=== PATIENT | female | born 1960 | race Caucasian/White ===

== ENCOUNTER → 2017-12-13 | Outpatient (CLI) | payer OTHER ==
[~2017-12-13] MED LIST: AMARYL2 MG PO; ASPIR 8181 MG PO; CPAP MISCELL; ESCITALOPRAM OX20 MG PO; FARXIGA5 MG PO; FLEXERIL PO; GABAPENTIN 100100 MG PO; HYDROCHLOROTHIA25 M2 PO; HYDROCODON-ACE1 EAC5 PO; LANTUS100 UNIT/M SUBQ; METFORMIN HCL500 MG PO; MOBIC15 MG PO; PRINIVIL10 MG PO; SINGULAIR 10 MG10 M1 PO
--- NOTE | 2018-01-04 16:28 | PAINCON ---
[address] [address] PAIN MANAGEMENT CONSULTATION Name: DANIELLE RUIZ Room: [facility] Anne#: [id number] Admission: 12/13/17 Attend Phys: Lala Aguilar MD Discharge: Date of : 58 Report #: [id number] THIS REPORT FOR: //name// CC: Lala Chen DATE OF SERVICE: 12/13/2017 CHIEF COMPLAINT: Chronic pain, ywpo-bw-smax pain in the knee. HISTORY OF PRESENT ILLNESS: The patient is a 57-year-old female who has been referred to the pain clinic. The patient states that she has had lpbm-au-rytz pain in her knees. She also has pain in her hips. Pain is quite problematic with ambulation. She has been treated with hydrocodone. She found that this medication was helpful. Feels that Meloxicam is helpful as well. She has considered surgery. Because of her weight and useful age, her orthopedic surgeon has asked that she consider delaying surgery as long as possible. The patient has come to the pain clinic with a hope that she can receive medications to help control her pain while she is waiting for an opportunity to undergo surgery. ALLERGIES: No known drug allergies. MEDICATIONS: Aspirin 81 mg daily, Flexeril 10 mg 1 p.o. t.i.d. Farxiga 5 mg, escitalopram 20 mg, Neurontin 100 mg t.i.d., Amaryl 2 mg, hydrochlorothiazide 25 mg, hydrocodone 10/325 one p.o. b.i.d., insulin 100 units, 40 units subcutaneously at bedtime, lisinopril 10 mg, Mobic 15 mg, Glucophage 1000 mg daily, Singulair 10 mg. PAST MEDICAL HISTORY: Diabetes, anemia, hypertension, emotional problems, joint disease. PAST SURGICAL HISTORY: , 05/16/1985, hysterectomy 08/2002, 06/14/1988, carpal tunnel surgery, bilateral. SOCIAL HISTORY: She is disabled and has been for the last 7 years. REVIEW OF SYSTEMS: Generally good health, wears glasses, shortness of breath with walking, swelling of the ankles, joint pains, joint stiffness, weakness, muscle joints, back pain, difficulty walking, depression, and insomnia. LABORATORY DATA: No new laboratory values are available at the time of our interview. PAIN CLINIC ASSESSMENT/PQRS: 1. History of osteoarthritis. The patient [place] [address] PAIN MANAGEMENT CONSULTATION Name: JOSEPHDANIELLE Room: [facility]#: [id number] Admission: 12/13/17 Attend Phys: Lala Aguilar MD Discharge: Date of : 58 Report #: [id number] knees. The patient has not been treated for rheumatoid arthritis. 2. Height 5 feet 2 inches, weight 293 pounds, BMI is 53.7. 3. Vital signs: Blood pressure 156/77, heart rate is 92, respiratory rate 18, room air saturation 93%, temperature 97.8. 4. Pain intensity 7/10. 5. Fall risk. The patient has not fallen in the last 3 months. 6. Blood thinner. The patient is not on a blood thinning medication. 7. Hypertension. The patient is being treated for hypertension. 8. Opioids greater than 6 weeks. The patient is being treated with opioids and will receive medications from one source in the pain clinic. 9. Risk assessment tool. 10. Functional assessment tool . 11. Recreational drug use: The patient denies. 12. Tobacco: The patient denies use of tobacco. 13. Alcohol: The patient denies use of alcoholic beverages. PHYSICAL EXAMINATION: GENERAL: The patient is a well-developed, well-nourished, obese white female, appears her stated age. She is alert and oriented x 3. Affect is appropriate. Speech is fluent. HEENT: Normocephalic, atraumatic. Extraocular eye muscles intact. Sclerae nonicteric. Mucous membranes are moist. The patient's is with her. HEART: Regular rate. S1, S2. LUNGS: Clear to auscultation without rhonchi or rales. ABDOMEN: Protuberant. Bowel sounds are positive. Upper extremity muscle strength is judged to be 5/5 for the major muscle groups in the upper extremity. Deep tendon reflexes are trace at the biceps bilaterally. The patient is without significant scoliosis, kyphosis or lordosis. Forward bending to about 70 degrees was possible. Left and right lateral rotation, left and right lateral bending were not very problematic. The patient complains of some pain and discomfort in her knees bilaterally. Able to rise upon her toes, able to rise up on her heels. Anterior and posterior spring test negative. Dmitri sign is negative. Deep tendon reflexes are trace at the knees bilaterally. The patient has a cane that she uses to ambulate with. IMPRESSION: 1. Osteoarthritis of knees, left and right qikm-xg-cxxs. 2. Diabetes mellitus type 2. 3. Hypertension. 4. Hypercholesterolemia. 5. Asthma. 6. Depression. 7. Sleep apnea. 8. Morbid obesity. RECOMMENDATIONS: We discussed the use of opioid medications. I explained to [facility] [address] [place] [address] PAIN MANAGEMENT CONSULTATION Name: DANIELLE RUIZ Room: [facility]#: [id number] Admission: 12/13/17 Attend Phys: Lala Aguilar MD Discharge: Date of : 58 Report #: [id number] the patient the possible complications of opioid medications which could include problems with addiction. The patient also has been educated in regards to the possibility of lessening of the effectiveness of opioid medication secondary to intolerance. She feels that the medications of 10 mg 1 p.o. b.i.d. has been helpful. She is in a position where her surgeon feels that she is too young to undergo surgical repair. She will need to lose weight prior to the surgery. We explained to the patient that options to lose weight should be sought. Also, possible use of water aerobics. The patient and her are open to this. A script for medications have been written. The patient was given a script for hydrocodone 10/325 one p.o. b.i.d. The patient has signed a contract with the pain clinic that she will get her medication from one source. We would like to thank you for letting us participate in her care. We hope she continues to improve. <ELECTRONICALLY SIGNED> By: Lala Aguilar MD 01/04/18 [id number]. Wang Aguilar MD /nt
== END ==
LOC: M.PC 11-17 04:54
DX: G89.29 Other chronic pain (principal); M17.0 Bilateral primary osteoarthritis of knee; I10 Essential (primary) hypertension; E78.00 Pure hypercholesterolemia, unspecified; F32.9 Major depressive disorder, single episode, unspecified; G47.33 Obstructive sleep apnea (adult) (pediatric); E66.01 Morbid (severe) obesity due to excess calories; J45.909 Unspecified asthma, uncomplicated; E11.9 Type 2 diabetes mellitus without complications

== ENCOUNTER → 2018-01-17 | Outpatient (CLI) | payer OTHER ==
--- NOTE | ~2018-01-17 | PAINCON ---
[address] [address] PAIN MANAGEMENT CONSULTATION Name: DANIELLE RUIZ Room: [facility] Anne#: [id number] Admission: 01/17/18 Attend Phys: Lala Aguilar MD Discharge: Date of : 58 Report #: [id number] THIS REPORT FOR: //name// CC: Lala Chen DATE OF SERVICE: 01/17/2018 FOLLOWUP COMPLAINT: Continued bone pain with ctuu-bm-snsm pain in my knee. FOLLOWUP HISTORY: The patient is a 57-year-old female who has been followed in the Pain Clinic because of chronic pain in her knees. She has wygo-lb-jebx pain. She is not ready to undergo knee replacements at this juncture. She does walk and ambulate with the use of a cane. Feels that Meloxicam is helpful. Finds that hydrocodone is beneficial. She is considering surgery. Her physician has requested that she postpone surgery as long as possible. She is somewhat obese. ALLERGIES: No known drug allergies. CURRENT MEDICATIONS: Aspirin 81 mg, Flexeril 10 mg 1 p.o. t.i.d., Farxiga 5 mg, escitalopram 20 mg, Neurontin 100 mg t.i.d., Amaryl 2 mg, hydrochlorothiazide 25 mg, hydrocodone 10/325 one p.o. b.i.d., insulin 100 units, 40 units subcutaneous at bedtime, lisinopril 100 mg, Mobic 15 mg, Glucophage 1000 mg daily, Singulair 100 mg. PAIN CLINIC ASSESSMENT/PQRS: 1. History of osteoarthritis. The patient has osteoarthritic changes in both the knees. The patient states that she has been told that she has osteoarthritic changes in all of her joints. 2. The patient is not being treated for rheumatoid arthritis. 3. Height 5 feet 2 inches, weight 291 pounds, BMI is 54. 4. Vital signs: Blood pressure 148/70, heart rate 73, respiratory rate 16, room air saturation 96%, temperature 98.3. 5. Pain intensity, 05/31. 6. Fall history: The patient has not fallen in the last 3 months. 7. Blood thinner. The patient is not on a blood thinning medication. 8. Hypertension. The patient is being treated for hypertension. 9. Opioid medications greater than 6 weeks. The patient receives her medications from one source, the Pain Clinic. 10. Risk assessment tool, low for opioid use. 11. Functional assessment tool . 12. Drug use: The patient denies use of recreational drugs. 13. Tobacco: The patient denies use of tobacco. 14. Alcohol: The patient [place] [address] PAIN MANAGEMENT CONSULTATION Name: DANIELLE RUIZ Room: [facility]#: [id number] Admission: 01/17/18 Attend Phys: Lala Aguilar MD Discharge: Date of : 58 Report #: [id number] PHYSICAL EXAMINATION: GENERAL: The patient is a well-developed, well-nourished, obese white female, appears her stated age. She is alert and oriented x 3. Her affect is appropriate. Speech is fluent. HEENT: Normocephalic, atraumatic. Extraocular eye muscles intact. Sclerae nonicteric. Mucous membranes are moist. HEART: Regular rate. S1, S2. LUNGS: Clear to auscultation without rhonchi or rales. ABDOMEN: Protuberant. Bowel sounds positive. MUSCULOSKELETAL: Upper extremity muscle strength is judged to be 5/5 for the major muscle groups. Deep tendon reflexes, trace bilaterally. The patient is without significant scoliosis, kyphosis or lordosis. The patient has pain and discomfort in her knees bilaterally. Does walk with a cane. Has a left and right lateral rocking motion with a complaint of pain and discomfort in her knees bilaterally. ASSESSMENT: 1. Osteoarthritis of her knees, left and right with nyjp-yi-sfvt pain -- the patient states she has osteoarthritic changes in numerous bone areas. 2. Diabetes type 2. 3. Hypertension. 4. Hypercholesterolemia. 5. Asthma. 6. Depression. 7. Sleep apnea. 8. Morbid obesity. RECOMMENDATIONS: We discussed treatment options with the patient. At this juncture, we will continue with her opioid medications. Feels the medications are helpful. Does not have any problems with the medication with her breathing. Finds that one to two tablets daily is efficacious. She is aware of the possible complication of opioid medications. They can cause some problems with sleep apnea. The patient states that she is not having any problems with this medication and sleeping at this juncture. She feels that the medications, able her to enable her to engage in activities of daily living, she would not be able to without them. Rates her pain as a 4/10. She would like to continue with her medications. She will call us if she has any concerns. A script for her medications of hydrocodone one p.o. b.i.d. had been written. We would like to thank you for letting us participate in her care. We hope she continues to improve. By: [id number]. Wang Aguilar MD /nt
== END ==
LOC: M.PC 04:53
DX: M17.0 Bilateral primary osteoarthritis of knee (principal); E11.9 Type 2 diabetes mellitus without complications; I10 Essential (primary) hypertension; E78.00 Pure hypercholesterolemia, unspecified; J45.909 Unspecified asthma, uncomplicated; F32.9 Major depressive disorder, single episode, unspecified; G47.30 Sleep apnea, unspecified; E66.01 Morbid (severe) obesity due to excess calories

== ENCOUNTER → 2018-02-23 | Outpatient (CLI) | payer OTHER ==
--- NOTE | ~2018-02-23 | PAINCON ---
[address] [address] PAIN MANAGEMENT CONSULTATION Name: JOSEPHDANIELLE Cheng Room: [facility] Anne#: [id number] Admission: 02/23/18 Attend Phys: Lala Aguilar MD Discharge: Date of : 58 Report #: [id number] THIS REPORT FOR: //name// CC: Lala Chen MD DATE OF SERVICE: 02/23/2018 CHIEF COMPLAINT: Here for medications. "I have got wfen-ar-ziro knee pain." HISTORY: The patient is a 57-year-old female who has been seen in the Pain Clinic in the past because of chronic pain involving her knees. States that she does have vqub-vd-pkyc knee pain. She has found hydrocodone 10 mg b.i.d. to be beneficial. She has returned today for renewal of her medications. Overall, she feels that knee replacements are likely in the future. At this juncture, she is not ready to undergo replacement. Walks with use of her cane. Feels that the nonsteroidal anti-inflammatory medication, Meloxicam is helpful. She is somewhat obese and finds that the added weight again adds to the pain and discomfort she is experiencing on her knees. ALLERGIES: No known drug allergies. CURRENT MEDICATIONS: Aspirin 81 mg, Flexeril 10 mg 1 p.o. t.i.d., Farxiga 5 mg, escitalopram 20 mg, Neurontin 100 mg t.i.d., Amaryl 2 mg, hydrochlorothiazide 25 mg, hydrocodone 10/325 one p.o. b.i.d., insulin 100 units 40 units subcutaneous at bedtime, lisinopril 100 mg, Mobic 15 mg, Glucophage 1000 mg daily, and Singulair 100 mg. PAIN CLINIC ASSESSMENT/PQRS: 1. History of osteoarthritis. The patient has arthritic changes with ramo-ap-eumj involvement of both of her knees. She has been told to have surgery. At this juncture, she would like to postpone as long as possible. The patient is not being treated for rheumatoid arthritis. 2. Height 5 feet 2 inches, weight 286 pounds, BMI is 50. 3. Vital signs: Blood pressure 155/75, heart rate is 84, respiratory rate 18, room air saturation 94%, temperature 98.1. 4. Pain intensity 4/10. 5. Fall history: The patient has not fallen in the last 3 months. She did fall with moving from a rolling chair to another chair. She was not injured and did not seek medical attention. 6. Blood thinner. The patient is not on a blood thinning medication. 7. Hypertension. The patient is being treated for hypertension. 8. Opioids greater than 6 weeks. The patient receives her medication from one source, the Pain Clinic. 9. Risk assessment tool, [place] [address] PAIN MANAGEMENT CONSULTATION Name: DANIELLE RUIZ Room: [facility] Anne#: [id number] Admission: 02/23/18 Attend Phys: Lala Aguilar MD Discharge: Date of : 58 Report #: [id number] 10. Functional assessment tool . 11. Drug use. The patient denies use of recreational drugs. 12. Tobacco: The patient denies use of tobacco. 13. Alcohol: The patient denies use of alcoholic beverages. PHYSICAL EXAMINATION: GENERAL: The patient is a well-developed, well-nourished white female. Appears her stated age. She is obese. Her affect is appropriate. Speech is fluent. HEENT: Normocephalic and atraumatic. Extraocular muscles intact. Sclerae nonicteric. Mucous membranes are moist. NECK: Without adenopathy or JVD. HEART: Regular rate. S1, S2. LUNGS: Clear to auscultation without rhonchi or rales. ABDOMEN: Protuberant. Bowel sounds positive, somewhat of a pannus noted. MUSCULOSKELETAL: Upper extremity muscle straight judged to be 5/5 for the major muscle groups in the upper extremity. Deep tendon reflexes trace bilaterally. The patient without significant scoliosis, kyphosis or lordosis. Does have pain and discomfort in her knees bilaterally. Walks with use of a cane. Has a left or right rocking motion when walking. ASSESSMENT: 1. Osteoarthritis of her knees bilaterally with zmwh-vk-wyay pain. 2. Diabetes type 2. 3. Hypertension. 4. Hypercholesterolemia. 5. Asthma. 6. Depression. 7. Sleep apnea. 8. Morbid obesity. RECOMMENDATIONS: We discussed treatment options with the patient. We will continue with her hydrocodone. The patient feels that this medication is beneficial. She is able to be more active with its use. She has had no complication from the medications. We again discussed the possible complication of opioid use, they could include termite treater helper or short term addiction as well as less effectiveness over a period of time because of the development of tolerance. The patient feels medications are helpful and would like to continue their use. A script for the medication have been written. She will follow up in about a month. We would like to thank you for letting us participate in her care. We hope she continues to improve. By: [id number]. Wang Aguilar MD /stephan
== END ==
LOC: M.PC 10:30
DX: M17.0 Bilateral primary osteoarthritis of knee (principal); E11.9 Type 2 diabetes mellitus without complications; I10 Essential (primary) hypertension; E78.00 Pure hypercholesterolemia, unspecified; J45.909 Unspecified asthma, uncomplicated; F32.9 Major depressive disorder, single episode, unspecified; G47.30 Sleep apnea, unspecified; E66.01 Morbid (severe) obesity due to excess calories; Z79.899 Other long term (current) drug therapy; Z68.43 Body mass index [BMI] 50.0-59.9, adult

== ENCOUNTER → 2018-04-27 | Outpatient (CLI) | payer OTHER ==
--- NOTE | ~2018-04-27 | PAINCON ---
[address] [address] PAIN MANAGEMENT CONSULTATION Name: JOSEPHDANIELLE Room: [facility] Anne#: [id number] Admission: 04/27/18 Attend Phys: Lala Aguilar MD Discharge: Date of : 58 Report #: [id number] THIS REPORT FOR: //name// CC: Lala Chen DATE OF SERVICE: 04/27/2018 CHIEF COMPLAINT: "Here for medication renewal and continued to have pain in both knees." FOLLOWUP HISTORY: The patient is a 57-year-old female who has been seen in the Pain Clinic. She has chronic pain involving her knees. She is experiencing lwze-sl-eadg pain. She has found that hydrocodone, gabapentin and Mobic are helpful. She has returned today for renewal of her hydrocodone medication. She notes that activities, cold weather, walking, standing, sitting, going from a sitting to a standing position, lifting and bending are problematic. She feels that her medication, use of heat and cold as well as rest are beneficial and she would like to continue with her medications. ALLERGIES: No known drug allergies. CURRENT MEDICATIONS: Aspirin 81 mg, Flexeril 10 mg one p.o. t.i.d., Farxiga 5 mg, escitalopram 20 mg, Neurontin 100 mg t.i.d., Amaryl 2 mg, hydrochlorothiazide 25 mg, hydrocodone 10/325s one p.o. b.i.d., insulin 100 units - 40 units subcutaneous at bedtime, lisinopril 100 mg, Mobic 15 mg, Glucophage 1000 mg, Singulair 100 mg. PAIN CLINIC ASSESSMENT/PQRS: 1. Osteoarthritis: The patient has arthritic changes in her knees with yzsj-al-hmel on both knees. The patient was told that she should postpone surgery. 2. Height 5 feet 2 inches, weight 286 pounds, BMI is 50. 3. Vital signs: Blood pressure 154/75, heart rate 84, respiratory rate 18, room air saturation 93%, temperature 98.2. 4. Pain intensity: 09/30. 5. Fall history: The patient has not fallen in the last 3 months. 6. Blood thinner: The patient is not on a blood thinning medication. 7. Hypertension: The patient is being treated for hypertension. 8. Opioids greater than 6 weeks: The patient receives her medication from one source, Pain Clinic. 9. Risk assessment tool: Low for opioid use. 10. Functional assessment tool. 11. Recreational drug use: The patient denies use of recreational drugs. 12. Alcohol: The patient [place] [address] PAIN MANAGEMENT CONSULTATION Name: DANIELLE RUIZ [facility] [id number] Admission: 04/27/18 Attend Phys: Lala Aguilar MD Discharge: Date of : 58 Report #: [id number] PHYSICAL EXAMINATION: GENERAL: The patient is a well-developed, well-nourished white female. She appears her stated age. She is alert and oriented x 3. She is obese. Her affect is appropriate. Speech is fluent. HEENT: Normocephalic, atraumatic. Extraocular eye muscles are intact. Sclerae are nonicteric. Mucous membranes are moist. NECK: Without adenopathy or JVD. LUNGS: Clear to auscultation, without rhonchi or rales. ABDOMEN: Protuberant. Bowel sounds present. The patient has a pannus. MUSCULOSKELETAL: Upper extremity muscle strength judged to be 5/5 for the major muscle groups in the upper extremity. Deep tendon reflexes are trace bilaterally. The patient without significant scoliosis, kyphosis, or lordosis. The patient does walk and ambulate with pain. She has an antalgic gait with a evelyn motion. ASSESSMENT: 1. Osteoarthritis of the knees bilaterally with uquf-zu-fglu pain. 2. Diabetes type 2. 3. Hypertension. 4. Hypercholesterolemia. 5. Asthma. 6. Depression. 7. Sleep apnea. 8. Morbid obesity. RECOMMENDATIONS: We discussed treatment options with the patient. Risks and benefits of opioid medications were again re-affirmed. They include benefits but can become less effective over time secondary to development of tolerance. We have explained the possible complications of dependence, 11991 people last year as a result of use of opioid medications. The patient is aware of the opioid crisis in the news. She feels that things are going reasonably well. She is gleaning greater than 50% improvement in her pain and would like to continue with her current medical regimen. By: [id number]. Wang Aguilar MD /nt
== END ==
LOC: M.PC 03-30 12:10
DX: M17.0 Bilateral primary osteoarthritis of knee (principal); E11.9 Type 2 diabetes mellitus without complications; I10 Essential (primary) hypertension; E78.00 Pure hypercholesterolemia, unspecified; J45.909 Unspecified asthma, uncomplicated; G47.30 Sleep apnea, unspecified; F32.9 Major depressive disorder, single episode, unspecified; E66.01 Morbid (severe) obesity due to excess calories; Z68.43 Body mass index [BMI] 50.0-59.9, adult; Z79.899 Other long term (current) drug therapy

== ENCOUNTER → 2018-05-25 | Outpatient (CLI) | payer OTHER ==
--- NOTE | ~2018-05-25 | PAINCON ---
[address] [address] PAIN MANAGEMENT CONSULTATION Name: JOSEPHDANIELLE Room: [facility] Anne#: [id number] Admission: 05/25/18 Attend Phys: Lala Aguilar MD Discharge: Date of : 58 Report #: [id number] THIS REPORT FOR: //name// CC: Lala Chen DATE OF SERVICE: 05/25/2018 CHIEF COMPLAINT: Chronic pain with ijzv-wi-csoa pain in the knees. HISTORY: The patient is a 57-year-old female who has been seen in the Pain Clinic because of chronic pain involving her knees. At this juncture, she is having jjsk-eu-jfta pain. She is not scheduled for knee replacements. She tries to stay as active as possible. Notes that walking, standing, going from sitting to standing is problematic. She walks with a cane. Does note that this limits her activities. Notes that heat and cold can be helpful. She has been taking her medications of hydrocodone as directed. Feels that the Mobic medication is helpful as well. Gabapentin continues to be used. At this juncture, she has returned today for renewal of her medications. She feels that the weather is improved somewhat, but rates her pain as about 50% improved with her current medication regimen. She continues to try and lose weight. ALLERGIES: No known drug allergies. CURRENT MEDICATIONS: Aspirin 81 mg, Flexeril 10 mg 1 p.o. t.i.d., Farxiga 5 mg, escitalopram 20 mg, Neurontin 100 mg t.i.d., Amaryl 2 mg, hydrochlorothiazide 25 mg, hydrocodone 10/325 one p.o. b.i.d., insulin 100 units, 40 units at bedtime, lisinopril 100 mg, Mobic 15 mg, Glucophage ____ mg, Singulair 100 mg. PAIN CLINIC ASSESSMENT/PQRS: 1. The patient is not being treated for rheumatoid arthritis. She is being treated for osteoarthritis with bzoe-to-nkze pain. She is not undergoing surgery at this juncture. She has been told to postpone it until absolutely necessary. 2. Height 5 feet 2 inches, weight 291 pounds, BMI is 51. 3. Vital Signs: Heart rate is 83, respiratory rate is 18, room air saturation is 94%, blood pressure 144/68, temperature 98.7. 4. Pain intensity 6/10. 5. Fall history, the patient has not fallen in the last 3 months. 6. Blood thinner. The patient is on a blood thinning medication. 7. Hypertension. The patient is being treated for hypertension. 8. Opioids greater than 6 weeks. The patient receives her medication from one source, the pain clinic. 9. Risk assessment tool, low for opioid use. 10. Functional assessment tool. 11. Recreational drug use. The [place] [address] PAIN MANAGEMENT CONSULTATION Name: DANIELLE RUIZ Room: [facility]#: [id number] Admission: 05/25/18 Attend Phys: Lala Aguilar MD Discharge: Date of : 58 Report #: [id number] 12. Alcohol: The patient denies frequent use of alcoholic beverages. PHYSICAL EXAMINATION: GENERAL: The patient is a well-developed, obese white female. Appears stated age. She is alert and oriented x 3. Her affect is appropriate. Speech is fluent. HEENT: Normocephalic, atraumatic. Extraocular eye muscles intact. NECK: Without adenopathy or JVD. HEART: Regular rate. S1, S2. LUNGS: Clear to auscultation without rhonchi. ABDOMEN: Protuberant. Bowel sounds are present. The patient has a pannus. MUSCULOSKELETAL: Upper extremity muscle strength judged to be 5-/5 for the major muscle groups. Lower extremity is judged to be 5- for the lower extremities. Limited secondary to pain because of mfob-dq-nbdx discomfort. Walks with an antalgic gait, uses a cane. Uses a rocking motion in her gait. ASSESSMENT: 1. Osteoarthritis of the knee bilaterally mjrb-jl-dmxd pain. 2. Diabetes type 2. The patient states that her A1c is about 8.1. 3. Hypertension. 4. Hypercholesterolemia. 5. Asthma. 6. Depression. 7. Sleep apnea. 8. Morbid obesity. RECOMMENDATIONS: We discussed treatment options with the patient. Risks and benefits of use of opioid medications were discussed. The patient at this juncture is not a candidate for a knee replacement. She is trying to maintain her pain control as best she can without surgery at this juncture. Feels that the hydrocodone medication is helpful. Continues to take the aspirin medication, Mobic. Uses gabapentin. She will follow up as needed. A script for her medications of hydrocodone 10/325 one p.o. b.i.d. have been written. She will call us when she needs to return. We have discussed the problems with opioid medication, which could be development of tolerance with less effectiveness of the medication as well as development of addiction to opioid medications. She feels that things are going reasonably well. Keeps her medication in a guarded area. She will follow up in the future as needed. We would like to thank you for letting us participate in her care. We hope she continues to improve. By: [id number]. Wang Aguilar MD /nt
== END ==
LOC: M.PC 04:35
DX: M17.0 Bilateral primary osteoarthritis of knee (principal); E11.9 Type 2 diabetes mellitus without complications; I10 Essential (primary) hypertension; E78.00 Pure hypercholesterolemia, unspecified; J45.909 Unspecified asthma, uncomplicated; F32.9 Major depressive disorder, single episode, unspecified; E66.8 Other obesity; G47.39 Other sleep apnea; G89.29 Other chronic pain; Z79.899 Other long term (current) drug therapy

== ENCOUNTER → 2018-06-22 | Outpatient (CLI) | payer OTHER ==
--- NOTE | ~2018-06-22 | PAINCON ---
[address] [address] PAIN MANAGEMENT CONSULTATION Name: JOSEPHDANIELLE Cheng Room: [facility] Dayana#: [id number] Admission: 06/22/18 Attend Phys: Lala Aguilar MD Discharge: Date of : 58 Report #: [id number] THIS REPORT FOR: //name// CC: Lala Chen MD DATE OF SERVICE: 06/22/2018 CHIEF COMPLAINT: Here for medication renewal. FOLLOWUP HISTORY: The patient is a 57-year-old female who has been followed in the Pain Clinic. She states that she has zxzj-lo-iyyy pain involving her knees. She has not had surgery. She rates pain as a 4/10. Denies any changes. Notes that her pain medications continued to be helpful. Notes pain with walking, standing, sitting, climbing stairs, lifting and bending. Cold temperatures can be more problematic. Notes that use of her medications in conjunction with heat and cold can be beneficial. She feels her medications help her and she is about 50% relief from discomfort with their use. She continues to try to lose weight. ALLERGIES: No known drug allergies. CURRENT MEDICATIONS: Aspirin 81 mg, Flexeril 10 mg 1 p.o. t.i.d., Farxiga 5 mg, escitalopram 20 mg, Neurontin 100 mg t.i.d., Amaryl 2 mg, hydrochlorothiazide 25 mg, hydrocodone 10/325 one p.o. b.i.d.; insulin 100 units, 40 units at bedtime; lisinopril 100 mg; Mobic 15 mg; Glucophage 500 mg 1 p.o. b.i.d.; Singulair 100 mg. PAIN CLINIC ASSESSMENT/PQRS: 1. The patient is not being treated for rheumatoid arthritis. She is being treated for osteoarthritis with ixfg-mg-ujfq pain involving her knees. She has continued to postpone surgery until it is absolutely necessary. Height 5 feet 2 inches, weight 299 pounds, BMI is 51.1. 2. Blood pressure 145/76, heart rate 82, respiratory rate 20, room air saturation 95%. Temperature 98.2. 3. Pain intensity 05/31. 4. Fall history: The patient has not fallen in the last 3 months. 5. Blood thinner. The patient is not on a blood thinning medication. 6. Hypertension. The patient is being treated for hypertension. 7. Opioids greater than 6 weeks. The patient receives her medication from one source, the Pain Clinic. 8. Risk assessment tool, low for opioid use. 9. Functional assessment tool. 10. Recreational drug use. The patient denies use of recreational drugs. 11. Alcohol: The patient denies [place] [address] PAIN MANAGEMENT CONSULTATION Name: DANIELLE RUIZ [id number] Admission: 06/22/18 Attend Phys: Lala Aguilar MD Discharge: Date of : 58 Report #: [id number] PHYSICAL EXAMINATION: GENERAL: The patient is a well-developed, well-nourished, obese white female. Appears her stated age. She is alert and oriented x 3. Her affect is appropriate. Speech is fluent. HEENT: Normocephalic, atraumatic. Extraocular eye muscles intact. Sclerae nonicteric. Mucous membranes are moist. NECK: Without adenopathy or JVD. HEART: Regular rate. S1, S2. LUNGS: Clear to auscultation. ABDOMEN: Protuberant. Bowel sounds present. The patient has a pannus. Upper extremity muscle strength is judged to be 5-/5 for the major muscle groups. Lower extremity muscle strength 5-/5 for the lower extremities. The patient has pain and discomfort with tpmb-se-gnwm discomfort in her left and right knee. Walks with an antalgic gait and uses her cane. Has a slight rocking motion in her gait. ASSESSMENT: 1. Osteoarthritis of the knees bilaterally with eqih-or-fqlr pain. 2. Type 2 diabetes. 3. Hypertension. 4. Hypercholesterolemia. 5. Asthma. 6. Depression. 7. Sleep apnea. 8. Morbid obesity. RECOMMENDATIONS: We discussed treatment options with the patient. At this juncture, we will continue with her medications. She is aware that opioid medications can be helpful to some extent, but are not able to totally alleviate her pain. She continues to bide her time. She will consider replacement of her knees in the future. At this juncture, she will continue with her medications of hydrocodone, which she finds helpful. We will continue with gabapentin as well as with Mobic. She does not have any problems with her stomach at this juncture. She will call us if she has any concerns. A script for her medications have been written. We would like to thank you for letting us participate in her care. We hope she continues to improve. By: [id number]. Wang Aguilar MD /nt
== END ==
LOC: M.PC 04:48
DX: M17.0 Bilateral primary osteoarthritis of knee (principal); E11.9 Type 2 diabetes mellitus without complications; I10 Essential (primary) hypertension; E78.00 Pure hypercholesterolemia, unspecified; J45.909 Unspecified asthma, uncomplicated; F32.9 Major depressive disorder, single episode, unspecified; G47.30 Sleep apnea, unspecified; E66.01 Morbid (severe) obesity due to excess calories; Z68.43 Body mass index [BMI] 50.0-59.9, adult; Z79.899 Other long term (current) drug therapy

== ENCOUNTER → 2018-07-25 | Outpatient (CLI) | payer OTHER ==
--- NOTE | ~2018-07-25 | PAINCON ---
[address] [address] PAIN MANAGEMENT CONSULTATION Name: DANIELLE RUIZ Room: [facility] Anne#: [id number] Admission: 07/25/18 Attend Phys: Lala Aguilar MD Discharge: Date of : 58 Report #: [id number] THIS REPORT FOR: //name// CC: Lala Chen DATE OF SERVICE: 07/25/2018 CHIEF COMPLAINT: Here for medication renewal. HISTORY: The patient is a 57-year-old female who has been followed in the pain clinic. She has some pain and discomfort involving her knees. She does have ehqm-ej-ougf involvement. At this juncture, she has continued to take a conservative approach. She continues to have pain, which radiates down into her knees. Both the left knee and the right knee are problematic. Left is more problematic than right. She has been experiencing this pain for a number of years. She has gone to her orthopedic surgeons. At this point, orthopedic surgeons have declined knee replacements until she loses weight. Does have diabetes, which needs to be under control. ALLERGIES: No known drug allergies. CURRENT MEDICATIONS: Aspirin 81 mg, Flexeril 10 mg 1 p.o. t.i.d., Farxiga 5 mg, escitalopram 20 mg, Neurontin 100 mg t.i.d., Amaryl 2 mg, hydrochlorothiazide 25 mg, hydrocodone 10/325 one p.o. b.i.d., insulin 100 units, 40 units at bedtime, lisinopril 100 mg, Mobic 15 mg, Glucophage 500 mg b.i.d., and Singulair 100 mg. PAIN CLINIC ASSESSMENT AND PQRS: 1. The patient is not being treated for rheumatoid arthritis. She is not being treated for osteoarthritis, but does have cpin-ti-jzdx involvement of her knees. 2. Height 5 feet 3 inches, weight 280 pounds, BMI is 51. 3. Vital signs: Blood pressure 138/69, heart rate 71, respiratory rate 18, room air saturation 92%, temperature 98.7. 4. Pain intensity 08/30. 5. Fall history: The patient has not fallen in the last 3 months. 6. Blood thinner. The patient is not on a blood thinning medication. 7. Hypertension. The patient is being treated for hypertension. 8. Opioids greater than 6 weeks. The patient receives her medication from one source, the pain clinic. 9. Risk assessment tool, low for opioid use. 10. Functional assessment tool. 11. Recreational drug use. The patient denies use of recreational drugs. 12. Alcohol: The patient denies frequent use of alcoholic beverages. PHYSICAL EXAMINATION: GENERAL: The patient is well-developed, well-nourished [place] [address] PAIN MANAGEMENT CONSULTATION Name: DANIELLE RUIZ Room: [facility]#: [id number] Admission: 07/25/18 Attend Phys: Lala Aguilar MD Discharge: Date of : 58 Report #: [id number] morbidly obese. She appears her stated age. She is alert and oriented x 3. Her affect is appropriate. Speech is fluent. HEENT: Normocephalic, atraumatic. Extraocular eye muscles intact. Sclerae nonicteric. Mucous membranes moist. NECK: Without adenopathy or JVD. HEART: Regular rate. S1, S2. LUNGS: Clear to auscultation, somewhat decreased given the patient's body habitus. ABDOMEN: Protuberant. Bowel sounds present. The patient has a pannus. MUSCULOSKELETAL: Upper extremity muscle strength is judged to be 5-/5 for the major muscle groups in the lower extremity. The patient complains of pain and discomfort secondary to xzlq-ok-myvj, pain in her knees, left and right. The patient walks with an antalgic gait. She does use a cane. She has a slight walk evelyn motion in her gait. ASSESSMENT: 1. Osteoarthritis of the knees bilaterally with uuer-yp-fliu pain. 2. Type 2 diabetes. 3. Hypertension. 4. Hypercholesterolemia. 5. Asthma. 6. Depression. 7. Sleep apnea. 8. Morbid obesity. 9. Complex pain management using opioid medications. RECOMMENDATIONS: We discussed the use of opioid medication with the patient. We will continue with her medication regimen of hydrocodone 10 mg 1 p.o. b.i.d. The patient will also continue with gabapentin to help control the pain as well as meloxicam. She will monitor her GI tract for the effects of nonsteroidal anti-inflammatory medications such as Mobic. She will also continue with the gabapentin medication. We may consider in the future increasing the gabapentin medication as she is able to tolerate it. Sometimes the pain thresholds are not improved until 1800 mg of this medication has been reached. Some patients were able to tolerate it better than others. We will consider that in the future. The patient will continue with the hydrocodone 10 mg, a script for this has been written. She will call us if she has any concerns. She finds that her pain is about 50% improved with use of this medication. We would like to thank you for letting us participate in her care. We hope she continues. By: [id number]. MD rylie King
== END ==
LOC: M.PC 05:12
DX: Z76.0 Encounter for issue of repeat prescription (principal); M17.0 Bilateral primary osteoarthritis of knee; E11.9 Type 2 diabetes mellitus without complications; I10 Essential (primary) hypertension; E78.00 Pure hypercholesterolemia, unspecified; E66.9 Obesity, unspecified; F32.9 Major depressive disorder, single episode, unspecified; Z79.891 Long term (current) use of opiate analgesic; Z79.82 Long term (current) use of aspirin; Z79.899 Other long term (current) drug therapy

== ENCOUNTER → 2018-08-31 | Outpatient (CLI) | payer OTHER ==
--- NOTE | ~2018-08-31 | PAINCON ---
[address] [address] PAIN MANAGEMENT CONSULTATION Name: JOSEPHDANIELLE Room: [facility] M.Thu.#: [id number] Admission: Attend Phys: Lala Aguilar MD Discharge: Date of : 58 Report #: [id number] THIS REPORT FOR: //name// CC: Lala Chen MD DATE OF SERVICE: 08/31/2018 CHIEF COMPLAINT: Here for medication renewal. The patient is a 58-year-old female who has been followed in the pain clinic. As you recall, she has significant problems with her knees. She described a psku-qj-etqj pain involves her left knee as well as the right. She is not a candidate for surgery at this point. She may require weight loss before they would proceed. She does have diabetes. She has taken her medications as prescribed. She feels that her medications are helpful. She is about 50% improved with her current medical regimen. She is having some increased pain in her back as well as in her hips. She rates her pain as a 7 today. It can rise to the level of a 9 by the end of the day. She has had benefit from her opioid medications and has elected to continue their use. At this juncture, she would like to have her medications renewed. ALLERGIES: No known drug allergies. CURRENT MEDICATIONS: Aspirin 81 mg, Flexeril 10 mg 1 p.o. t.i.d., Farxiga 5 mg, escitalopram 20 mg, Neurontin 100 mg t.i.d., Amaryl 2 mg, hydrochlorothiazide 25 mg, hydrocodone 10/325 one p.o. b.i.d., insulin 100 units, 24 units at bedtime, lisinopril 100 mg, Mobic 15 mg, Glucophage 500 mg b.i.d., and Singulair 100 mg. PAIN CLINIC ASSESSMENT/PQRS: 1. The patient is not being treated for rheumatoid arthritis. She does have a history of osteoarthritis. Has qltu-qr-dpxw pain involving her knees. 2. Height 5 feet 3, weight is 284 pounds, BMI is 50.0. 3. Vital signs: Blood pressure 152/52, heart rate 80, respiratory rate 16, room air saturation 94%, temperature 98.2. 4. Pain intensity 7/10. 5. Fall history: The patient has not fallen in the last 3 months. 6. Blood thinner. The patient is not on a blood thinning medication. 7. Hypertension. The patient is being treated for hypertension. 8. Opioid greater than 6 weeks. The patient receives her medications from one source, the pain clinic. 9. Risk assessment tool, low for opioid use. 10. Functional assessment tool. 11. Recreational drug use. The patient denies use of recreational drugs. 12. Alcohol: The patient denies [place] [address] PAIN MANAGEMENT CONSULTATION Name: DANIELLE RUIZ Room: [facility].#: [id number] Admission: Attend Phys: Lala Aguilar MD Discharge: Date of : 58 Report #: [id number] PHYSICAL EXAMINATION: GENERAL: The patient is a well-developed, well-nourished morbidly obese white female. Appears her stated age. She is alert and oriented x 3. Her affect is appropriate. Speech is fluent. HEENT: Normocephalic, atraumatic. Extraocular eye muscles intact. Sclerae nonicteric. Mucous membranes are moist. NECK: Without adenopathy or JVD. HEART: Regular rate. S1, S2. LUNGS: Clear to auscultation, somewhat difficulty here secondary to the patient's body habitus. ABDOMEN: Protuberant. Bowel sounds present. The patient has a pannus. MUSCULOSKELETAL: Upper extremity muscle strength is judged to be 5-/5 for the major muscle groups in the upper extremity. The patient walks with a cane. Has omoq-az-lcsx pain complaints in her knees. Has a somewhat waddling gait. It appears antalgic. She states that there is some discomfort when she is walking. ASSESSMENT: 1. Osteoarthritis of the knees bilaterally with uiem-le-brtf pain. 2. Type 2 diabetes. 3. Hypertension. 4. Hypercholesterolemia. 5. Asthma. 6. Depression. 7. Sleep apnea. 8. Morbid obesity. 9. Complex pain management using opioid medications. RECOMMENDATIONS: We discussed treatment options with the patient. At this juncture, we will continue with her medications. She feels that the hydrocodone 10 mg 1 p.o. b.i.d. is helpful. The patient does have sleep apnea and states that she is not having any more problems with her medication than without. Feels that the gabapentin medication is helpful. Continues to use it in conjunction with meloxicam. She continues to monitor her GI tract because of the nonsteroidal effects of Mobic. She will continue with her medications of hydrocodone. She is aware that this medication can be problematic in some patients. Some patients can develop tolerance and become note less effectiveness over a period of time. Some patients may also develop problems and developed dependency. She does not feel she has had any problems with dependency. She is using the medication as prescribed. She is able to engage in activities, she would not be able to. She rates her pain as about 50% improvement with the medication. She elects to continue with the medication. A script for her medications of hydrocodone [place] [address] PAIN MANAGEMENT CONSULTATION Name: DANIELLE RUIZ Room: [facility].#: [id number] Admission: Attend Phys: Lala Aguilar MD Discharge: Date of : 58 Report #: [id number] written. We will continue with a complex medical management using opioids to help the patient continued to be as active as possible. By: [id number]. Wang Aguilar MD /[facility]
== END ==
LOC: M.PC 08-22 05:10
DX: Z76.0 Encounter for issue of repeat prescription (principal); M17.0 Bilateral primary osteoarthritis of knee; E11.9 Type 2 diabetes mellitus without complications; I10 Essential (primary) hypertension; E78.00 Pure hypercholesterolemia, unspecified; J45.909 Unspecified asthma, uncomplicated; G47.30 Sleep apnea, unspecified; E66.9 Obesity, unspecified; F32.9 Major depressive disorder, single episode, unspecified; Z79.891 Long term (current) use of opiate analgesic; Z79.899 Other long term (current) drug therapy